=== PATIENT | male | born 2000 | race Caucasian/White ===

== ENCOUNTER 2022-01-23 13:55 | Emergency (ER) | payer BC, SELFPAY ==
[2022-01-23 14:01] VITALS: BP 133/85; PULSE 87; RESP 18; TEMP 36.8; O2SAT 100
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
[2022-01-23] MEDS: Ketorolac 30 MG/ML VIAL IM (14:26)
== END 2022-01-23 16:09 | disposition home or self-care (01) ==
PROVIDERS: Emergency Provider Student in an Organized Health Care Education/Training Program
DX: S42.002A Fracture of unspecified part of left clavicle, initial encounter for closed fracture (principal); S42.102A Fracture of unspecified part of scapula, left shoulder, initial encounter for closed fracture; F17.290 Nicotine dependence, other tobacco product, uncomplicated; V19.9XXA Pedal cyclist (driver) (passenger) injured in unspecified traffic accident, initial encounter; Y93.55 Activity, bike riding
CPT/HCPCS: 96372; 99284; 71046; 73000; 73030; J1885